=== PATIENT | female | born 1965 | race Caucasian/White ===

== ENCOUNTER 2023-07-03 11:54 | Emergency (ER) | payer OTHER, SELFPAY ==
[2023-07-03 11:56] VITALS: BP 139/81; PULSE 145; RESP 26; TEMP 36.9; O2SAT 86; BMI 37.1
--- NOTE | 2023-07-03 11:58 | XRR_ITS ---
PROCEDURE INFORMATION: Exam: XR Chest Exam date and time: 07/03/2023 12:05 PM Age: 58 years old Clinical indication: Shortness of breath; Prior surgery; Surgery date: 6+ months; Surgery type: Jeremi breast; Patient HX: History of breast and lung cancer; Additional info: SOB TECHNIQUE: Imaging protocol: Radiologic exam of the chest. Views: 1 view. COMPARISON: No relevant prior studies available. FINDINGS: Lungs: Unremarkable. No consolidation. Pleural spaces: Unremarkable. No pleural effusion. No pneumothorax. Heart/Mediastinum: Unremarkable. No cardiomegaly. Bones/joints: Unremarkable. XR/XR chest 1V portable [id number] IMPRESSION: No acute findings.
--- NOTE | 2023-07-03 12:02 | ED_ITS ---
HPI - SOB/Dyspnea General: Chief Complaint: Shortness of Breath/Dyspnea Stated Complaint: SOB Time Seen by Provider: 07/03/23 11:54 Source: patient and EMS Mode of arrival: EMS Limitations: no limitations History of Present Illness: HPI Narrative: 58-year-old female who states that she has had increasing shortness of breath over the last 3 days. She has a history of stage IV lung cancer states that she just feels like she cannot breathe she is breathing very rapidly here appears anxious as well. Denies any pain she has had a cough denies any fevers. Associated symptoms: Deny abdominal pain, chest pain, fever(s), nausea or vomiting Review of Systems Const: Denies: fever(s), chills, body aches or change in appetite Eyes: Denies: blurry vision or eye discomfort ENMT: Denies: throat pain or dental pain Card: Denies: chest pain Resp: Reports: dyspnea GI: Denies: abdominal pain, nausea, vomiting or diarrhea Musc: Denies: neck pain or back pain Skin/Breast: Denies: rash Neuro: Denies: headache(s) Physical Exam Const: COMMON NORMALS: patient oriented x3 GENERAL APPEARANCE: ill appearing HENMT: COMMON NORMALS: normocephalic and atraumatic HEAD & SCALP: normocephalic and atraumatic Neck/C-Spine: COMMON NORMALS: full ROM and supple Chest: COMMONS NORMALS: normal inspection of the chest and normal palpation of entire chest wall Resp: EFFORT & INSPECTION: Yes tachypneic and Yes respiratory distress Cardio: COMMON NORMALS: regular rhythm and No murmurs present (Cardio) RATE: tachycardic RHYTHM: regular rhythm GI: COMMON NORMALS: Normal to inspection, nondistended, normoactive bowel sounds present, Soft to palpation, non-tender and no masses PALPATION: Yes Soft to palpation Extremity: COMMON NORMALS: normal to inspection and full ROM Neuro: COMMON NORMALS: patient oriented x3, moves all extremities and no focal motor deficits Psych: COMMON NORMALS: mental status grossly normal, Normal thought process present and cooperative THOUGHT PROCESS: Normal thought process present Skin: COMMON NORMALS: no rashes or lesions noted and no wounds GENERAL SKIN EXAM: no rashes or lesions noted Course Vital Signs: Vital signs: Vital Signs Temperature 98.4 F 07/03/23 11:56 Pulse Rate 129 H 07/03/23 12:24 Respiratory Rate 25 H 07/03/23 12:24 Blood Pressure 108/81 07/03/23 14:50 Pulse Oximetry 92 07/03/23 12:24 Oxygen Delivery Me thod Aerosol Mask 07/03/23 12:24 Oxygen Flow Rate 7 07/03/23 12:24 MDM - SOB/Dyspnea Medical Decision Making Patient presents here with shortness of breath CT shows a saddle emboli she does have right heart strain with an elevated BNP and troponin. Patient started on heparin in the ER spoke to biodiesel plant operations engineer at [facility] Dr. Rodrigues. Did go over CT along with lab findings discussed possibility of tPA as well he wanted me to hold off as she is not hemodynamically unstable and he wonders seen up there for possible thrombectomy. Medical Records I reviewed the patient's medical records. Lab Data I reviewed the patient's lab results. 07/03/23 12:19 07/03/23 12:19 Labs/Radiology: Radiology Impressions Chest X-Ray 07/03/23 11:58 IMPRESSION: No acute findings. Laboratory Results WBC 5.46 10^3/uL (3.29-11.43) 07/03/23 12:19 Corrected WBC 5.2 10^3/cmm (4.8-10.8) 07/03/23 12:19 RBC 3.16 10^6/uL (3.85-5.65) L 07/03/23 12:19 Hgb 9.90 g/dL (11.27-16.99) L 07/03/23 12:19 Hct 30.1 % (36-47) L 07/03/23 12:19 MCV 95.3 fl (85-98) 07/03/23 12:19 MCH 31.3 pg (27-33) 07/03/23 12:19 MCHC 32.9 g/dL (30-55) 07/03/23 12:19 RDW 12.8 % (12.1-15.1) 07/03/23 12:19 Plt Count 71 10^3/cmm (157-399) L 07/03/23 12:19 MPV 10.5 fL (7.4-10.4) H 07/03/23 12:19 Lymph % (Auto) Not Reportable 07/03/23 12:19 Bland % (Auto) Not Reportable 07/03/23 12:19 Lymph # (Auto) Not Reportable 07/03/23 12:19 Bland # (Auto) Not Reportable 07/03/23 12:19 Total Counted 100 (0-100) 07/03/23 12:19 Atypical Lymphs % 6.0 % (0-5) H 07/03/23 12:19 Absolute Neutrophils 2.7 10^3/cmm (1.4-6.5) 07/03/23 12:19 Segmented Neutrophils 47 % 07/03/23 12:19 Abs Segm Neuts (Man) 2.6 10/cmm (1.6-7.1) 07/03/23 12:19 Band Neutrophils 2.0 % 07/03/23 12:19 Abs Band Neuts (Man) 0.1 10^3/cmm (0.0-1.2) 07/03/23 12:19 Absolute Lymphocytes 2.3 10^3/cmm (1.2-3.4) 07/03/23 12:19 Lymphocytes (Manual) 36 % 07/03/23 12:19 Monocytes (Manual) 3.0 % 07/03/23 12:19 Absolute Monocytes 0.2 10^3/cmm (0.1-0.6) 07/03/23 12:19 Eosinophils (Manual) 0 % 07/03/23 12:19 Absolute Eosinophils 0.0 10^3/cmm (0.0-0.7) 07/03/23 12:19 Basophils (Manual) 0.0 % 07/03/23 12:19 Absolute Basophils 0.0 10^3/cmm (0.0-0.2) 07/03/23 12:19 Metamyelocytes 4.0 % 07/03/23 12:19 Myelocytes 1.0 % 07/03/23 12:19 Promyelocytes 1.0 % 07/03/23 12:19 Nucleated RBCs 5.0 /100WBC (0-1) H 07/03/23 12:19 Blast Cells 0 % (0-0) 07/03/23 12:19 Platelet Estimate Decreased (Normal) L 07/03/23 12:19 Giant Platelets 2+ H 07/03/23 12:19 Polychromasia 2+ H 07/03/23 12:19 Anisocytosis 1+ H 07/03/23 12:19 Macrocytosis 1+ H 07/03/23 12:19 D-Dimer 11.91 ug/mLFEU (0-0.59) H 07/03/23 12:19 Specimen Type Arterial 07/03/23 11:58 Sample Site Radial, right 07/03/23 11:58 ABG pH 7.35 (7.35-7.45) 07/03/23 11:58 ABG pCO2 33.3 mmHg (35-45) L 07/03/23 11:58 ABG pO2 86.0 mmHg (80.0-100.0) 07/03/23 11:58 ABG HCO3 18.3 mmol/L (22-26) L 07/03/23 11:58 ABG Base Excess -6.5 mmol/L (-2.0-2.0) L 07/03/23 11:58 Vasile Test Pos 07/03/23 11:58 Hematocrit 28.6 % (37-47) L 07/03/23 11:58 Hgb O2 Saturation > 100.0 % (95-100) H 07/03/23 11:58 Carboxyhemoglobin 0.0 %THgb (0.4-20.1) L 07/03/23 11:58 Methemoglobin < 0.0 % (0.4-1.5) L 07/03/23 11:58 Total Hemoglobin 9.3 g/dL (12-16) L 07/03/23 11:58 O2 Delivery Device Nrb 07/03/23 11:58 O2 Liters/Min 15.0 % 07/03/23 11:58 Fruit Loader ID Walci 07/03/23 11:58 Sodium 134 mmol/L (136-145) L 07/03/23 12:19 Potassium 4.7 mmol/L (3.5-5.1) 07/03/23 12:19 Chloride 94 mmol/L (98-107) L 07/03/23 12:19 Carbon Dioxide 20 mmol/L (22-29) L 07/03/23 12:19 Anion Gap 24.7 (5-19) H 07/03/23 12:19 BUN 32 mg/dL (8-23) H 07/03/23 12:19 Creatinine 0.8 mg/dL (0.5-0.9) 07/03/23 12:19 GFR Calculation 73.2 mL/min (90-130) L 07/03/23 12:19 Glucose 269 mg/dL (65-115) H 07/03/23 12:19 Calculated Osmolality 294 mOsm/kg (285-295) 07/03/23 12:19 Lactic Acid 6.2 mmol/L (0.5-2.2) H* 07/03/23 12:19 Calcium 10.1 mg/dL (8.5-10.5) 07/03/23 12:19 Total Bilirubin 0.4 mg/dL (0.15-1.2) 07/03/23 12:19 AST 93 U/L (0-32) H 07/03/23 12:19 ALT 122 U/L (0-33) H 07/03/23 12:19 Alkaline Phosphatase 95 U/L (35-105) 07/03/23 12:19 Troponin T Baseline 74 ng/L (0-10) H 07/03/23 12:19 Troponin T 120 Minute 68.10 ng/L (0-10) H 07/03/23 14:39 Delta Troponin T -5.90 ABS# (0-10) L 07/03/23 14:39 NT-Pro-B Natriuret Pep 5864 pg/mL (0-125) H 07/03/23 12:19 Total Protein 6.5 g/dL (6.6-8.7) L 07/03/23 12:19 Albumin 3.7 g/dL (3.5-5.2) 07/03/23 12:19 Globulin 2.8 g/dL (1.3-4.6) 07/03/23 12:19 Influenza Type A Ag negative (Negative) 07/03/23 12:30 Influenza Type B Ag negative (Negative) 07/03/23 12:30 SARS-CoV-2 Ag (Rapid) negative (Negative) 07/03/23 12:30 All radiology interpretation(s) finalized by discharge Critical Care Time Critical Care Time: Critical Care Time: Yes Total Critical Care Time: 45 Attestation: The high probability of a clinically significant, sudden or life threatening deterioration of the patient's cv system(s) required my full and direct attention, intervention and personal management. The critical care time is as shown. This time is in addition to time spent performing any reported procedures but includes the following: [x] Data and vital sign review and interpretation [x] Patient assessment, examination and intervention [x] Documentation [x] Medication orders and management Discharge Plan Discharge Patient Disposition: Xfer Short-Term Hosp Clinical Impression: Pulmonary embolism Condition: Stable Coding Level of Care Code ED Labor Relations Consultant for Adelia Alejandra
[2023-07-03 12:09] LABS: ABG PCO2 33.3 mmHg (35-45); ABG PH Result 7.35 (7.35-7.45); Arterial Blood Gas Hematocrit 28.6 % (37-47); Base Excess ABG -6.5 mmol/L (-2.0-2.0); Blood Gas Allen Test Pos; Blood Gas Operator Identificat WALCI; Blood Gas Sample Site Radial, right; Blood Gas Sample Type Arterial; HCO3 ABG 18.3 mmol/L (22-26); HGB O2 Sat > 100.0 % (95-100); Methemoglobin < 0.0 % (0.4-1.5); Oxygen Device NRB; Total Hemoglobin 9.3 g/dL (12-16)
[2023-07-03] MEDS: LORazepam 2 mg/mL INJ 1 mL 1 MG IVP (12:21)
[2023-07-03 12:24] VITALS: BP 139/81; PULSE 129; RESP 25; O2SAT 92
[2023-07-03 12:27] LABS: Hematocrit 30.1 % (36-47); Mean Corpuscular HGB Conc 32.9 g/dL (30-55); Mean Corpuscular Hemoglobin 31.3 pg (27-33); Mean Corpuscular Volume 95.3 fl (85-98); Mean Platelet Volume 10.5 fL (7.4-10.4); Platelet Count 71 10^3/cmm (157-399); Red Blood Count 3.16 10^6/uL (3.85-5.65); Red Cell Distribution Width 12.8 % (12.1-15.1); White Blood Count 5.46 10^3/uL (3.29-11.43)
[2023-07-03 12:50] LABS: D Dimer 11.91 ug/mLFEU (0-0.59)
--- NOTE | 2023-07-03 12:53 | CT_ITS ---
WS: [id number] CT CHEST ANGIOGRAPHY WITH REFORMATS HISTORY: sob TECHNIQUE: Contiguous axial images are obtained through the chest during arterial injection of intrav enous contrast. Images are reconstructed to evaluate the pulmonary arteries. MIP imaging also reviewe d. All CT scans at [facility] use at least one of these dose optimization techniques: automat ed exposure control; mA and/or kV adjustment per patient size (includes targeted exams where dose is matched to clinical indication); or iterative reconstruction. CONTRAST: Omnipaque 350; 100 mL IV. DLP: 455.85 mGy.cm COMPARISON: None available. Massive central pulmonary emboli. There is a saddle embolus extending from the main pulmonary artery into the RIGHT and LEFT pulmonary arteries. Distal RIGHT main pulmonary artery appears completely occ luded. Extensive thrombus in the RIGHT upper, middle and lower lobe pulmonary arteries. Lesser burden but still significant involving the LEFT upper and lower lobe pulmonary arteries. Massive pulmonary emboli. Marked RIGHT heart strain. RIGHT heart is enlarged. There is flattening of the interventricul ar septum. Very small LEFT ventricle cavity. Solid mass at the RIGHT hilum in the superior RIGHT lower lobe measures 1.9 x 1.8 cm. Mild hazy attenuation throughout both lungs with scattered opacifications. Peripheral pleural shaped opacifications greatest in the mid and lower lungs consistent with developing pulmonary infarcts. Lar gest infarct in the posterior LEFT lower lobe. No pneumothorax. No pleural effusion. Atherosclerosis aorta. Soft tissue mass RIGHT paratracheal region continuous with the thyroid. Suspec t this may be a substernal thyroid. This will need to be further evaluated for possible adenopathy. T here is slight mass effect and narrowing of the trachea. There are additional small mediastinal lymph and hilar lymph nodes. Hepatic steatosis. Tricuspid regurgitation into the hepatic veins. Benign appearing LEFT adrenal ashutosh lenard. IMPRESSION: 1. Massive bilateral saddle embolism. Complete occlusion of the RIGHT distal main pulmonary artery. 2. Bilateral developing pulmonary infarct. 3. Severe RIGHT heart strain. 4. Superior segment RIGHT lower lobe pulmonary mass measuring 1.9 x 1.8 cm suspicious for neoplasm. 5. RIGHT paratracheal soft tissue mass. Lymphadenopathy versus substernal goiter. PET/CT imaging will be necessary after patient's acute process resolves. Notified Grazyna Franks MD at 07/03/2023 2:33 PM.
--- NOTE | 2023-07-03 12:54 | ECG_ITS ---
[facility] Test Date: 2023-07-03 Pat Name: Shanti Squires Department: Room: Gender: Female Senior Qa Tester: : 1965 Requested By: Grazyna Franks Order Number: [id number] Ben MD: Meliton Dunbar M.D. Measurements Intervals [place] Rate: 118 P: 32 AK: 132 QRS: 55 QRSD: 90 T: -11 QT: 310 QTc: 435 Interpretive Statements SINUS TACHYCARDIA POSSIBLE LEFT ATRIAL ENLARGEMENT [-0.1mV P-WAVE IN V1/V2] ST changes of ANTERIOR MYOCARDIAL INFARCTION , OF INDETERMINATE AGE [30 ms Q WAVE IN V3/V4, OR R < 0.2 mV IN V4] No previous ECG available for comparison Electronically Signed On 07-04-2023 13:18:38 PRINCIPAL CONSULTING ENGINEER by Meliton Dunbar M.D. [id number]
[2023-07-03 12:57] LABS: Alanine Aminotransferase 122 U/L (0-33); Albumin Level 3.7 g/dL (3.5-5.2); Alkaline Phosphatase 95 U/L (35-105); Anion Gap 24.7 (5-19); Aspartate Amino Transferase 93 U/L (0-32); Blood Urea Nitrogen 32 mg/dL (8-23); Calcium 10.1 mg/dL (8.5-10.5); Carbon Dioxide 20 mmol/L (22-29); Chloride 94 mmol/L (98-107); Globulin 2.8 g/dL (1.3-4.6); Glomerular Filtration Rate 73.2 mL/min (90-130); Glucose 269 mg/dL (65-115); NT Pro B Type Natriuretic Pept 5864 pg/mL (0-125); Osmolality Calculated 294 mOsm/kg (285-295); Potassium 4.7 mmol/L (3.5-5.1); Sodium 134 mmol/L (136-145); Total Bilirubin 0.4 mg/dL (0.15-1.2); Total Protein 6.5 g/dL (6.6-8.7)
[2023-07-03 13:07] LABS: Influenza A by IFA negative (Negative); Influenza B by IFA negative (Negative)
[2023-07-03 13:08] LABS: SARS Covid-2 Antigen negative (Negative)
[2023-07-03 13:38] LABS: Troponin(5th) Baseline 74 ng/L (0-10)
[2023-07-03 13:54] LABS: Slide Review Slide Review Perform
[2023-07-03 13:55] LABS: Absolute Neutrophil 2.7 10^3/cmm (1.4-6.5); Absolute Segmented Neutrophil 2.6 10/cmm (1.6-7.1); Anisocytosis 1+; Band Neutrophils Absolute 0.1 10^3/cmm (0.0-1.2); Blastocytes 0 % (0-0); Corrected White Blood Count 5.2 10^3/cmm (4.8-10.8); Eosinophils 0 %; Giant Platelets 2+; Lymphocytes 36 %; Lymphocytes Absolute 2.3 10^3/cmm (1.2-3.4); Monocytes Absolute 0.2 10^3/cmm (0.1-0.6); Platelet Estimate Decreased (Normal); Polychromasia 2+; Segmented Neutrophils 47 %; Total Cells Counted 100 (0-100)
[2023-07-03 13:56] LABS: Macrocytosis 1+
[2023-07-03] MEDS: iohexol 350 mg/mL 500 mL Btl (per mL) IV (14:01)
[2023-07-03 14:50] VITALS: BP 108/81
--- NOTE | 2023-07-03 14:54 | ECG_ITS ---
[facility] Test Date: 2023-07-03 Pat Name: Shanti Squires Department: Room: Gender: Female Wharf Tender: : 1965 Requested By: Grazyna Franks Order Number: [id number] Ben MD: Meliton Dunbar M.D. Measurements Intervals [place] Rate: 105 P: 52 [place]: 152 QRS: 57 QRSD: 88 T: 7 QT: 340 QTc: 450 Interpretive Statements SINUS TACHYCARDIA POSSIBLE LEFT ATRIAL ENLARGEMENT [-0.1mV P-WAVE IN V1/V2] Anterior ST changes suggestive of myocardial infarction query old Compared to ECG 07/03/2023 12:57:16 No significant change Electronically Signed On 07-04-2023 13:33:32 MILLER HEAD by Meliton Dunbar M.D. [id number]
[2023-07-03] MEDS: heparin drip 25,000 UNIT/500 ML PREMIX 28 UNIT IV (15:05)
[2023-07-03] MEDS: heparin 5,000 unit/mL INJ 1 mL 4000 UNIT IVP (15:08)
[2023-07-03 15:09] LABS: Lactic Sepsis W/Reflex 6.2 mmol/L (0.5-2.2)
[2023-07-03 16:30] LABS: Reflex Lactate Order REFLEX LACTIC ORDERD
== END 2023-07-03 16:00 | disposition short-term general hospital (02) ==
PROVIDERS: Emergency Provider Emergency Medicine
DX: I26.99 Other pulmonary embolism without acute cor pulmonale (principal); Z11.52 Encounter for screening for COVID-19
CPT/HCPCS: 36415; 36600; 71045; 71275; 80053; 82805; 83605; 83880; 84484; 85007; 85025; 85378; 87426; 87804; 93005; 93010; 96374; 96375; 99285; J1644; J2060; Q9967

== ENCOUNTER 2023-10-16 18:05 | Emergency (ER) | payer OTHER, SELFPAY ==
[2023-10-16 18:10] VITALS: BP 97/53; PULSE 88; RESP 14; O2SAT 92
[2023-10-16] MEDS: sodium chloride 0.9% 1,000 ML 999 ML IV (18:40)
[2023-10-16 18:51] LABS: Basophils % 0.5 %; Eosinophils % 0.3 %; Hematocrit 27.9 % (36-47); Lymphocytes # 0.5 10^3/uL (0.8-4.8); Lymphocytes % 14.1 %; Mean Corpuscular HGB Conc 32.3 g/dL (30-55); Mean Corpuscular Hemoglobin 34.5 pg (27-33); Mean Corpuscular Volume 106.9 fl (85-98); Mean Platelet Volume 8.9 fL (7.4-10.4); Monocytes # 0.1 10^3/uL (0.2-0.9); Monocytes % 1.9 %; Neutrophils # 3.06 10^3/uL (1.8-7.7); Neutrophils % 82.7 %; Nucleated Red Blood Cells % 0 %; Platelet Count 241 10^3/cmm (157-399); Red Blood Count 2.61 10^6/uL (3.85-5.65); Red Cell Distribution Width 17.6 % (12.1-15.1)
--- NOTE | 2023-10-16 18:55 | ED_ITS ---
HPI - Nausea/Vomiting/Diarrhea 2 General: Chief complaint: Nausea/Vomiting/Diarrhea Stated complaint: diarrhea, cancer patient Time Seen by Provider: 10/16/23 18:24 History of Present Illness: Patient presents to the ER complaints of diarrhea over the last 5 days worsening over the last 3. Roughly 1 week ago patient was on Omnicef for urinary tract infection and she went back to her doctor and it was still there that she was put on Cipro and she has been on for about 5 days. Patient does have lung cancer and is undergoing chemotherapy. Patient denies nausea vomiting and pain at this time. Review of Systems 2 General: Reports: 10 or more systems reviewed and unremarkable except in HPI and below Physical Exam 2 Const: COMMON NORMALS: no acute distress, average body habitus, patient oriented x3, no limitations, healthy appearing, alert and well nourished Neck/C-Spine: COMMON NORMALS: no JVD Chest: COMMONS NORMALS: normal inspection of the chest and normal palpation of entire chest wall Resp: COMMON NORMALS: normal respiratory effort, No retractions, No use of accessory muscles and clear to auscultation bilaterally AUSCULTATION: clear to auscultation bilaterally Cardio: COMMON NORMALS: no JVD, regular rate, regular rhythm, S1 normal heart sound present, S2 normal heart sound present, No gallops present (Cardio), No clicks present (Cardio), No murmurs present (Cardio) and No rub (Cardio) R ATE: regular rate RHYTHM: regular rhythm HEART SOUNDS: S1 normal heart sound present and S2 normal heart sound present GI: COMMON NORMALS: Normal to inspection, nondistended, normoactive bowel sounds present, Soft to palpation, non-tender, No hepatosplenomegaly present and no masses PALPATION: Yes Soft to palpation and Yes No hepatosplenomegaly present Neuro: COMMON NORMALS: patient oriented x3 SENSORIUM/ORIENTATION: Yes alert Course 2 Vital Signs: Vital signs: Vital Signs Pulse Rate 99 10/16/23 20:30 Respiratory Rate 18 10/16/23 20:30 Blood Pressure 129/77 10/16/23 20:30 Pulse Oximetry 98 10/16/23 20:30 Oxygen Delivery Me thod Nasal Cannula 10/16/23 19:08 Oxygen Flow Rate 2 10/16/23 19:08 MDM - Nausea/Vomiting/Diarrhea Medical Decision Making Patient physical exam and lab work performed lab work revealed patient's anemic at hemoglobin 9.0 hematocrit 27.9, mildly hypokalemic with a potassium of 5.2, lipase 41, patient was unable to give us a stool sample during her time in the ER as she took a antidiarrheal pill earlier today and it obviously is work. Patient will be discharged home. Differential Diagnosis Unlikely traveler's diarrhea, food poisoning, gastroenteritis, clostridium difficile infection, drug-induced nausea and vomiting or dehydration Medical Records I reviewed the patient's medical records. Lab Data I reviewed the patient's lab results. 10/16/23 18:36 10/16/23 18:36 Laboratory Results WBC 3.70 10^3/uL (3.29-11.43) 10/16/23 18:36 RBC 2.61 10^6/uL (3.85-5.65) L 10/16/23 18:36 Hgb 9.00 g/dL (11.27-16.99) L 10/16/23 18:36 Hct 27.9 % (36-47) L 10/16/23 18:36 MCV 106.9 fl (85-98) H 10/16/23 18:36 MCH 34.5 pg (27-33) H 10/16/23 18:36 MCHC 32.3 g/dL (30-55) 10/16/23 18:36 RDW 17.6 % (12.1-15.1) H 10/16/23 18:36 Plt Count 241 10^3/cmm (157-399) 10/16/23 18:36 MPV 8.9 fL (7.4-10.4) 10/16/23 18:36 Neut % (Auto) 82.7 % 10/16/23 18:36 Lymph % (Auto) 14.1 % 10/16/23 18:36 Cavalier % (Auto) 1.9 % 10/16/23 18:36 Eos % (Auto) 0.3 % 10/16/23 18:36 Baso % (Auto) 0.5 % 10/16/23 18:36 Neut # (Auto) 3.06 10^3/uL (1.8-7.7) 10/16/23 18:36 Lymph # (Auto) 0.5 10^3/uL (0.8-4.8) L 10/16/23 18:36 Cavalier # (Auto) 0.1 10^3/uL (0.2-0.9) L 10/16/23 18:36 Eos # (Auto) 0.0 10^3/uL (0.0-0.8) 10/16/23 18:36 Baso # (Auto) 0.0 10^3/uL (0.0-0.1) 10/16/23 18:36 Nucleated RBC % (auto) 0 % 10/16/23 18:36 Nucleated RBCs # 0.0 /100WBC 10/16/23 18:36 Sodium 131 mmol/L (136-145) L 10/16/23 18:36 Potassium 5.2 mmol/L (3.5-5.1) H 10/16/23 18:36 Chloride 94 mmol/L (98-107) L 10/16/23 18:36 Carbon Dioxide 26 mmol/L (22-29) 10/16/23 18:36 Anion Gap 16.2 (5-19) 10/16/23 18:36 BUN 16 mg/dL (8-23) 10/16/23 18:36 Creatinine 0.6 mg/dL (0.5-0.9) 10/16/23 18:36 GFR Calculation 102.0 mL/min (90-130) 10/16/23 18:36 Glucose 118 mg/dL (65-115) H 10/16/23 18:36 Calculated Osmolality 274 mOsm/kg (285-295) L 10/16/23 18:36 Calcium 9.5 mg/dL (8.5-10.5) 10/16/23 18:36 Total Bilirubin 0.7 mg/dL (0.15-1.2) 10/16/23 18:36 AST 71 U/L (0-32) H 10/16/23 18:36 ALT 73 U/L (0-33) H 10/16/23 18:36 Alkaline Phosphatase 91 U/L (35-105) 10/16/23 18:36 Total Protein 6.9 g/dL (6.6-8.7) 10/16/23 18:36 Albumin 3.3 g/dL (3.5-5.2) L 10/16/23 18:36 Globulin 3.6 g/dL (1.3-4.6) 10/16/23 18:36 Lipase 41 U/L (13-60) 10/16/23 18:36 No radiology studies performed this visit Discharge Plan Discharge Patient Disposition: Home Clinical Impression: Diarrhea Qualifiers: Diarrhea type: unspecified type Qualified Code(s): R19.7 - Diarrhea, unspecified Anemia Qualifiers: Anemia type: unspecified type Qualified Code(s): D64.9 - Anemia, unspecified Condition: Stable Discharge Orders: Discharge ED (Routine); Ordered 10/16/23 Ordered By: Amado Hernández Patient Instructions: Anemia - Oncology, Diarrhea - Oncology Activity Restrictions/Additional Instructions: Lab work performed in ER was essentially benign. He did show you was anemic with a hemoglobin of 9.0. Since you are unable to give us a stool sample we will not able to perform any stool studies. Please follow-up with your family practice physician or and/or oncologist within the next 7 days for further evaluation and treatment as needed. Coding Level of Care Code ED Varnish Mixer for Adelia Alejandra
[2023-10-16 19:08] VITALS: BP 113/69; PULSE 85; RESP 16; O2SAT 98
[2023-10-16 19:34] LABS: Alanine Aminotransferase 73 U/L (0-33); Albumin Level 3.3 g/dL (3.5-5.2); Alkaline Phosphatase 91 U/L (35-105); Anion Gap 16.2 (5-19); Aspartate Amino Transferase 71 U/L (0-32); Blood Urea Nitrogen 16 mg/dL (8-23); Calcium 9.5 mg/dL (8.5-10.5); Carbon Dioxide 26 mmol/L (22-29); Chloride 94 mmol/L (98-107); Creatinine Clr Calc Pharmacy 118.8363; Globulin 3.6 g/dL (1.3-4.6); Glucose 118 mg/dL (65-115); Lipase 41 U/L (13-60); Osmolality Calculated 274 mOsm/kg (285-295); Potassium 5.2 mmol/L (3.5-5.1); Sodium 131 mmol/L (136-145); Total Bilirubin 0.7 mg/dL (0.15-1.2); Total Protein 6.9 g/dL (6.6-8.7)
[2023-10-16 19:36] LABS: Slide Review Slide Review Perform
[2023-10-16 20:30] VITALS: BP 129/77; PULSE 99; RESP 18; O2SAT 98
== END 2023-10-16 21:38 | disposition home or self-care (01) ==
PROVIDERS: Emergency Medicine; Emergency Provider Emergency Medicine
DX: R19.7 Diarrhea, unspecified (principal); D64.9 Anemia, unspecified
CPT/HCPCS: 80053; 83690; 85025; 96360; 99284; J7030